=== PATIENT | male | born 1950 | race Caucasian/White ===

== ENCOUNTER 2017-09-12 10:57 | Inpatient (IN) | payer OTHER, MEDICARE ==
[2017-09-12 11:33] LABS: #Eosinphils 0.2 thou/uL (0.0-0.7); #Lymphocytes 2.7 thou/uL (1.20-3.40); #Monocytes 0.5 thou/uL (0.11-0.59); #Neutrophils 4.5 thou/uL (1.40-6.50); %Basophils 0.4 % (0.0-1.0); %Eosinophils 2.5 % (0.0-10.0); %Lymphocytes 34.5 % (21.0-51.0); %Monocytes 6.4 % (0.0-10.0); %Neutrophils 56.2 % (42.0-75.0); Hemoglobin 15.7 g/dL (14.0-18.0); Mean Corpuscular HGB CONC 33.7 g/dL (32.0-36.0); Mean Corpuscular Hemoglobin 32.2 pg (27.0-31.0); Mean Corpuscular Volume 95.4 fl (80.0-94.0); Mean Platelet Volume 7.6 fL (7.4-10.4); Platelet Count 219 thou/uL (130-400); RBC Distribution Width 12.3 % (11.5-14.5); Red Blood Cell (RBC) Count 4.88 mill/uL (4.70-6.10); White Blood Cell (WBC) Count 7.9 thou/uL (4.8-10.8)
[2017-09-12 11:40] LABS: PTT 26.7 SEC (22.9-36.1); Prothrombin Time 13.6 SEC (12.0-14.7)
[2017-09-12 11:57] LABS: ALT (SGPT) 18 U/L (8-55); AST (SGOT) 19 U/L (5-34); Albumin 3.9 g/dL (3.4-4.8); Alkaline Phosphatase 59 U/L (40-150); Anion Gap 15 mmol/L (10-20); BUN (Urea Nitrogen) 14 mg/dL (8.4-25.7); Bilirubin, Total 0.8 mg/dL (0.2-1.2); Calc. Creatinine Clearance 0 mL/min (70-130); Calcium 8.8 mg/dL (7.8-10.44); Carbon Dioxide 19 mmol/L (23-31); Chloride 109 mmol/L (98-107); Estimated GFR-MDRD 84; Globulin 2.7 g/dL (2.4-3.5); Glucose 116 mg/dL (80-115); Potassium 4.4 mmol/L (3.5-5.1); Protein, Total 6.6 g/dL (5.8-8.1); Sodium 139 mmol/L (136-145)
[2017-09-12] MEDS ORDERED: Acetaminophen 325 MG TAB PO PRN (14:29)
[2017-09-12 16:07] VITALS: BMI 34.7
[2017-09-12 16:09] LABS: Hemoglobin 13.8 g/dL (14.0-18.0)
--- NOTE | 2017-09-12 17:35 | HP ---
PRIMARY CARE PHYSICIAN: Dr. Saini. PRESENTING COMPLAINT: Rectal bleeding. HISTORY OF PRESENT ILLNESS: Mr. Kaydne Manzanares is a 66-year-old male with a past medical history of hypertension who presented to the emergency room with a 2- day history of bright red blood per rectum. He noticed the first episode 2 days ago after he went to the bathroom until the toilet was stained with bright blood mixed with stools. Since then he has had 2 more episodes and went to his PCP today who directed him to the emergency room. At the emergency room, he had 4 large bowel movements, which were all bloody. He denies abdominal pain, dizziness or loss of consciousness, but reports "gurgling" feeling in his abdomen and weakness. He had no history of fevers or chills. He has had no previous episodes in the past. His last colonoscopy was about 11 years ago and he states he was due for repeat two years ago, but had been putting it off. PAST MEDICAL HISTORY: Hypotension. PAST SURGICAL HISTORY: None. ALLERGIES: None. FAMILY HISTORY AND SOCIAL HISTORY: No family history of colon cancer or colon pathology. Other families are reviewed and noncontributory. Does not smoke but drinks 2 drinks daily. REVIEW OF SYSTEMS: General: Positive for generalized weakness. Negative for fevers or chills. HEENT: Negative. Cardiovascular: Denies chest pain, shortness of breath, palpitations or lower extremity edema. Respiratory: Denies cough, shortness of breath, sputum production. GI: Denies nausea, vomiting. Positive for hematochezia. : Negative. Musculoskeletal: Negative. Neurologic: Negative. Psychiatric: Negative. Hematologic: Negative. Skin: Negative. Allergy/immunology: Negative. PHYSICAL EXAMINATION: VITAL SIGNS: Blood pressure 146/90, heart rate 118, respiratory rate 18, oxygen saturation 98% on room air. GENERAL: Not in acute distress, sitting comfortably in bed. HEENT: PERRLA, EOMI not pale, anicteric. NECK: Supple, full range of movement. CARDIOVASCULAR: Tachycardia with regular rate and rhythm, S1 and S2 only. No murmurs, rubs or gallops. RESPIRATORY: Vesicular breath sounds bilaterally with no wheezes, rales or rhonchi. ABDOMEN: Bowel sounds positive, nontender, nondistended, no organomegaly. NEUROLOGIC: Alert and well oriented. No focal deficit. SKIN: Warm, dry, well perfused. MUSCULOSKELETAL: Has full range of movement. Moving all extremities spontaneously. LABORATORY AND X-RAY FINDINGS: WBC 7.9, hemoglobin 15.7. PT 13, INR 1. Serum chemistry largely unremarkable. ASSESSMENT AND PLAN: 1. Lower gastrointestinal bleed. The patient presents with multiple episodes of bright red blood per rectum. He has been made n.p.o., typed and screened and given a bolus of normal saline. We will restart maintenance fluids at 125 mL an hour, trying hemoglobin every 6 hours. We will transfuse if there is a rapid drop in hemoglobin or hemoglobin less than 7. GI has been consulted and he will likely need a colonoscopy. 2. Hypertension. Blood pressure is currently around his goal. We will hold home medications for now due to gastrointestinal bleed in an effort to avoid hypotension. THOMAS
[2017-09-12] MEDS ORDERED: GoLYTELY 4,000 ml Bottle PO SCH (17:45)
[2017-09-12] MEDS: Sodium Chloride 0.9% 1,000 ML IV SCH (18:29)
--- NOTE | 2017-09-12 21:35 | CON ---
DATE OF CONSULTATION: 09/12/2017 GI INPATIENT CONSULTATION NOTE REQUESTING PHYSICIAN: Dr. Padilla. REASON FOR CONSULTATION: Gastrointestinal bleeding. HISTORY OF PRESENT ILLNESS: Leighton Monique is a very pleasant 66-year-old man with a history of hypert ension and coronary artery disease. He has previously seen my GI colleague, Dr. Chavo Laughlin, for scre ening colonoscopy back in 08/2006. At that time, colonoscopy showed only left-sided diverticulosis a nd was otherwise normal. The patient has no chronic gastrointestinal symptoms. He takes only a charlie y aspirin. He does say for the past couple of weeks, he has had a little bit of indigestion, been ta tyrone Tums and Pepcid on an as needed basis, which really does help, but then 2 days ago, he had a bow el movement, was alarmed to see a significant amount of bright red blood in the toilet bowl along wit h his solid stool. This was completely painless and it happened once on that day then all through , he did not have any bowel movement at all or any other symptoms, but today early in the morn ing, he had another bowel movement and basically filled the commode with a large amount of bright red blood. This happened 3 times prior to presentation and has happened another 5 times since arrival. Through all of this, he has not had any dizziness or lightheadedness or presyncope. No abdominal pa in. He has remained hemodynamically stable since admission. There is no nausea. He was tachycardic on presentation and remains tachycardic at this time. His initial hemoglobin was 15.7 and this has declined to 13.8 with low BUN only 14. He has no other complaints. REVIEW OF SYSTEMS: Full review of systems including constitutional, head, eyes, ears, nose, throat, GI, , cardiovascular, respiratory, musculoskeletal, and neurologic systems is negative except as no estela in the HPI. PAST MEDICAL HISTORY: Hypertension, coronary artery disease, left-sided diverticulosis on colonoscop y 08/2006. ALLERGIES: No known drug allergies. OUTPATIENT MEDICATIONS: Aspirin 81 mg daily, Tums p.r.n., Pepcid p.r.n. SOCIAL HISTORY: No smoking, alcohol, or drug use. FAMILY HISTORY: Noncontributory. PHYSICAL EXAMINATION: VITAL SIGNS: Temperature 98.9, pulse 113, blood pressure 137/80, 96% oxygen saturation on room air. GENERAL: A 66-year-old gentleman lying in bed comfortably in no distress. MENTAL: He is in good spirits, alert and fully oriented, pleasant, conversational, gives a detailed coherent history. SKIN: No jaundice, no rashes were palpable. EYES: No scleral icterus. Extraocular movements are intact. ENT: Mucous membranes moist, no oral lesions. LYMPH: No submandibular, supraclavicular lymphadenopathy. THYROID: Nontender to palpation. HEART: Regular tachycardia. LUNGS: Clear to auscultation bilaterally. ABDOMEN: Protuberant, bowel sounds present, soft and nontender to palpation throughout. EXTREMITIES: No peripheral edema. VESSELS: Radial pulses 2+ bilaterally. NEUROLOGICAL: Cranial nerves II-XII intact bilaterally. No focal deficits. LABORATORY STUDIES: Initial hemoglobin 15.7 and declined a bit to 13.8, WBC 7.9, platelets 219. Sod ium 139, potassium 4.4, BUN only 14, creatinine 0.90, glucose 116, INR 1.0. LFTs normal with total b ilirubin 0.8, alkaline phosphatase 59, AST 19, ALT 18, albumin 3.9. FOBT is positive. Fecal lactofe rrin is positive. Campylobacter and Shiga toxin are negative. ASSESSMENT AND PLAN: 1. Lower gastrointestinal bleeding. 2. Tachycardia. The patient's presentation and lab parameters are almost suggestive of lower gastro intestinal bleeding. This is painless. He does have a history of diverticulosis and clinically, thi s does sound consistent with potential diverticular bleed. It may be slowing down this afternoon, bu t note that he is tachycardic. Continue to trend H&H. I will start gentle IV fluids on him. We judie l administer bowel preparation tonight and plan for colonoscopy tomorrow. If the colonoscopy is unre vealing, then we would perform EGD as well. Continue to monitor closely overnight. Further recommen dations following endoscopy tomorrow. Thank you for this consultation. Please call back at any time if questions or concerns.
[2017-09-12 22:04] LABS: Hemoglobin 13.4 g/dL (14.0-18.0)
[2017-09-13] MEDS: Sodium Chloride 0.9% 1,000 ML IV SCH (04:21)
[2017-09-13 05:24] LABS: #Basophils 0.1 thou/uL (0.0-0.2); #Eosinphils 0.2 thou/uL (0.0-0.7); #Lymphocytes 1.9 thou/uL (1.20-3.40); #Monocytes 0.6 thou/uL (0.11-0.59); #Neutrophils 3.7 thou/uL (1.40-6.50); %Lymphocytes 30.2 % (21.0-51.0); %Monocytes 8.6 % (0.0-10.0); %Neutrophils 57.2 % (42.0-75.0); Hemoglobin 11.8 g/dL (14.0-18.0); Mean Corpuscular Hemoglobin 32.7 pg (27.0-31.0); Mean Corpuscular Volume 96.3 fl (80.0-94.0); Mean Platelet Volume 7.5 fL (7.4-10.4); Platelet Count 166 thou/uL (130-400); RBC Distribution Width 12.2 % (11.5-14.5); White Blood Cell (WBC) Count 6.4 thou/uL (4.8-10.8)
[2017-09-13 05:40] LABS: ALT (SGPT) 13 U/L (8-55); AST (SGOT) 11 U/L (5-34); Albumin 3.2 g/dL (3.4-4.8); Alkaline Phosphatase 45 U/L (40-150); Anion Gap 9 mmol/L (10-20); BUN (Urea Nitrogen) 12 mg/dL (8.4-25.7); Bilirubin, Total 0.9 mg/dL (0.2-1.2); Calc. Creatinine Clearance 149 mL/min (70-130); Calcium 8.1 mg/dL (7.8-10.44); Carbon Dioxide 27 mmol/L (23-31); Chloride 108 mmol/L (98-107); Estimated GFR-MDRD 88; Globulin 1.9 g/dL (2.4-3.5); Glucose 112 mg/dL (80-115); Protein, Total 5.1 g/dL (5.8-8.1); Sodium 140 mmol/L (136-145)
--- NOTE | 2017-09-13 11:54 | PDOC.PN ---
- Subjective Encounter Start Date: 09/13/17 Encounter Start Time: 11:56 Subjective: No complaints. No acute events overnight. - Objective Resuscitation Status: Resuscitation Status FULL:Full Resuscitation MAR Reviewed: Yes Vital Signs & Weight: Vital Signs (12 hours) Temp Pulse Resp BP Pulse Ox 09/13/17 08:00 97.0 F L 96 19 143/78 H 94 L 09/13/17 04:00 98.4 F 97 22 H 147/76 H 97 09/13/17 00:00 98 F 106 H 14 127/79 97 Weight Weight 278 lb I&O: 09/12/17 09/13/17 09/14/17 06:59 06:59 06:59 Intake Total 1200 Balance 1200 Result Diagrams: 09/13/17 04:41 09/13/17 04:41 Phys Exam - Physical Examination Constitutional: NAD HEENT: PERRLA, moist MMs, sclera anicteric Neck: supple, full ROM Respiratory: no wheezing, no rales, no rhonchi, clear to auscultation bilateral Cardiovascular: RRR, no significant murmur, no rub Gastrointestinal: soft, non-tender, no distention, positive bowel sounds Musculoskeletal: no edema, pulses present Neurological: non-focal, moves all 4 limbs Psychiatric: normal affect, A&O x 3 Skin: no rash, normal turgor Dx/Plan (1) Lower GI bleed Code(s): K92.2 - GASTROINTESTINAL HEMORRHAGE, UNSPECIFIED Status: Acute Comment: Hemodynamically stable. Scheduled for colonoscopy 09/13. Will monitor IVF (2) HTN (hypertension) Code(s): I10 - ESSENTIAL (PRIMARY) HYPERTENSION Status: Acute Qualifiers: Hypertension type: essential hypertension Qualified Code(s): I10 - Essential (primary) hypertension Comment: Controlled. Takes Ramipril on outpatient basis, being held 2/2 GI bleed - Plan cont current plan of care, plan discussed w/ family, DVT proph w/SCDs Colonoscopy today * .
--- NOTE | 2017-09-13 12:09 | OP ---
DATE OF PROCEDURE: 09/13/2017 GI ENDOSCOPY NOTE SURGEON: Germain Bryan M.D. PRIVATE ADVISOR SURGEON: None. PROCEDURES: 1. Colonoscopy with polypectomy. 2. Esophagogastroduodenoscopy with biopsies. INDICATION: 1. Lower gastrointestinal bleeding. 2. Acute blood loss anemia. 3. Indigestion. MEDICATIONS: See anesthesia record. FINDINGS: After discussion of the risks, benefits and alternatives of the procedure, informed consen t was obtained and witnessed. Pre-endoscopic cardiopulmonary examination was satisfactory. Timeout was performed before sedation was achieved. Sedation was achieved with anesthesia assistance in the endoscopy unit. A Pentax adult colonoscope was prepared. Digital rectal exam was performed which wa s unremarkable. The colonoscope was inserted into the anus and passed forward to the cecum in the us ual fashion. The cecal base was identified by the appendiceal orifice as well as the ileocecal valve . The terminal ileum was intubated and the ileal mucosa appeared normal. There was no evidence of a ny old blood or active bleeding in the terminal ileum. The colonoscope was then slowly withdrawn in a gradual and circumferential manner with careful examination of the entire colonic mucosa. The qual ity of the prep was good. There was no evidence of any old blood or active bleeding anywhere in the colon. In the cecum, there was a small 2 mm polyp which was completely removed with cold snare and r etrieved for pathology. In the ascending colon, there were 2 small polyps measuring 3-5 mm in size. These were completely removed with hot snare and retrieved for pathology. In the left colon, there is heavy diverticulosis, particularly in the sigmoid colon, but there is no evidence of any blood sayda ts, no old blood or active bleeding. Retroflexion in the rectum demonstrated some internal hemorrhoi ds. The colonoscope was then completely withdrawn. At this point, it was decided to proceed with EG D given the essentially negative colon exam. A Pentax adult upper endoscope was placed into the orop harynx and passed through the cricopharyngeus under direct visualization. The proximal and mid esoph ageal mucosa appeared normal. In the distal esophagus at the GE junction, there is some mild esophag itis with friability. The endoscope was then advanced into the stomach. Forward and retroflexed vie ws of the entire gastric mucosa were obtained. There is a small hiatal hernia. There were a few sma ll erosions at the diaphragmatic pinch consistent with Shiv erosions. There is no evidence of any old blood or active bleeding in the stomach. There is some mild scattered erythema throughout the s tomach and biopsies were obtained from the gastric lining to rule out H. pylori. The endoscope was p assed through the pylorus and into the first and second portions of the duodenum. In the duodenal bu lb, there is erythema, edema, and a few small shallow nonbleeding erosions consistent with erosive du odenitis. The upper endoscope was then completely withdrawn and the patient allowed to recover. The patient tolerated the procedure well. There were no immediate post-procedure complications. IMPRESSION: 1. No old blood or active bleeding on upper or lower endoscopy. 2. Single 2 mm polyp in the cecum, completely removed with cold snare and retrieved for pathology. 3. Two small ascending colon polyps, completely removed with hot snare and retrieved for pathology. 4. Left-sided diverticulosis without evidence of diverticulitis or bleeding. This is thought to be the etiology of his recent bleeding episode. 5. Distal esophagitis. 6. Mild gastritis, biopsied to rule out Helicobacter pylori. 7. Hiatal hernia. 8. Erosive duodenitis. RECOMMENDATIONS: 1. Twice daily oral proton pump inhibitor. 2. Avoid nonsteroidal anti-inflammatory drugs. 3. Follow up pathology on the gastric biopsies. If H. pylori is present, treat with triple therapy and confirm eradication. 4. Advance diet. 5. The patient is okay for discharge home from a GI perspective. GI will sign off, and we will have him follow up in the outpatient clinic with Dr. Laughlin.
[2017-09-13 12:26] VITALS: BP 160/80; TEMP 97.6
[2017-09-13] MEDS ORDERED: PROPOFOL 200 MG/20 ML VIAL ONE (14:03)
--- NOTE | 2017-09-13 20:51 | DIS ---
DATE OF ADMISSION: 09/12/2017 DATE OF DISCHARGE: 09/13/2017 PRIMARY DISCHARGE DIAGNOSIS: Lower gastrointestinal bleed. SECONDARY DIAGNOSES: 1. Hypertension. 2. History of diverticulosis. CONSULTATIONS: GI. HISTORY OF PRESENT ILLNESS: Mr. Kayden Manzanares is a 66-year-old male with a past medical history of hy pertension and diverticulosis, who presented to the emergency room with a 2-day history of bright red blood per rectum. He had multiple episodes and went to see his PCP who eventually directed him to [facility] emergency room. While at the emergency room, he had 4 large bowel movements, which are mostly blo td. He denies abdominal pain, dizziness or loss of consciousness, but reported a gurgling feeling i n his abdomen and generalized weakness. He had no history of fever or chills. No previous episodes in the past. He had a last colonoscopy about 11 years ago and reports he was due for a repeat about 2 years ago, but has been putting it off. At the emergency room, he was immediately started on IV fl uids as he was tachycardic. Blood was taken for typing and screening and his hemoglobin was monitore d serially. GI was consulted and eventually patient had a colonoscopy on 09/13, which showed a singl e 2-mm polyp in the cecum, which was completely removed and retrieved for pathology. There were also two small ascending colon polyps also removed and taken for pathology. In addition, he had left-tia ed diverticulosis without evidence of diverticulitis or bleeding. This is thought to be the etiology of his recent bleeding episode. Other findings were distal esophagitis, mild gastritis which was bi opsied to rule out Helicobacter pylori. He also had a hiatal hernia and erosive duodenitis. He is r ecommended to take a proton pump inhibitor twice daily and to avoid nonsteroidal anti-inflammatory dr ugs. He is to follow up for the result of his gastric biopsy; if H. pylori is present, he will be tr eated with triple therapy and eradication will be confirmed. The patient was stable on day of discha rge. DISCHARGE MEDICATIONS: Aspirin 81 mg daily, pantoprazole 40 mg b.i.d., ramipril 5 mg daily, sildenaf il citrate 100 mg tablets p.r.n. PHYSICAL EXAMINATION: VITAL SIGNS: Stable at discharge, temperature was 97.6, pulse 92, respiratory rate 16, oxygen satura tion 98% on room air, blood pressure 160/80. For physical examination details, refer today's progress notes. LABORATORY DATA: WBC 6.4, hemoglobin 11.8, platelet count 166. Sodium 140, potassium 4, chloride 10 8, carbon dioxide 27, anion gap 9, BUN 12, creatinine 0.87. IMAGING: None. PROCEDURES: Colonoscopy and esophagogastroduodenoscopy. DIET: Heart healthy. CARE GOALS: To follow up with his PCP within 1 week of discharge. He is also to follow up for the r esults of his biopsies. ACTIVITY: To resume as tolerated. Discharge time 65 minutes including chart review and documentation.
--- NOTE | 2017-10-12 19:55 | EKG ---
Test Reason : Blood Pressure : / mmHG Vent. Rate : 117 BPM Atrial Rate : 117 BPM P-R Int : 150 ms QRS Dur : 090 ms QT Int : 322 ms P-R-T Axes : 061 -40 031 degrees QTc Int : 449 ms Sinus tachycardia Left axis deviation Abnormal ECG Confirmed by LENKA SOTO ([id number]), material expeditor DARRYL HOLLINS ([id number]) on 10/12/2017 7:54:32 PM Referred By: Confirmed By:LENKA SOTO
== END 2017-09-13 15:00 | disposition home or self-care (01) | DRG 378 ==
LOC: ERS 10:57 → 2NO 14:11 → T4-A 09-13 12:08
PROVIDERS: ADMIT Internal Medicine; ATTEND Internal Medicine
PROC: 0DBK8ZZ Excision of Ascending Colon, Via Natural or Artificial Opening Endoscopic (ICD-10-PCS; principal; 2017-09-13)
PROC: 0DBH8ZZ Excision of Cecum, Via Natural or Artificial Opening Endoscopic (ICD-10-PCS; 2017-09-13)
PROC: 0DB68ZX Excision of Stomach, Via Natural or Artificial Opening Endoscopic, Diagnostic (ICD-10-PCS; 2017-09-13)
DX: K57.31 Diverticulosis of large intestine without perforation or abscess with bleeding (principal); D62 Acute posthemorrhagic anemia; I10 Essential (primary) hypertension; D12.0 Benign neoplasm of cecum; K63.5 Polyp of colon; K64.8 Other hemorrhoids; K20.9 Esophagitis, unspecified; K29.80 Duodenitis without bleeding; K44.9 Diaphragmatic hernia without obstruction or gangrene
CPT/HCPCS: 36415; 80053; 82274; 83630; 85025; 85610; 85730; 86850; 86900; 86901; 87045; 87046; 87449; 87899; 88305; 88312; 93005; 96360; 96361; J2704